=== PATIENT | female | born 1960 | race Caucasian/White ===

== ENCOUNTER 2019-04-22 08:30 | Emergency (ER) | payer BC ==
[2019-04-22 08:45] VITALS: BP 144/82
[2019-04-22] MEDS ORDERED: Hydrocortisone 1% CREAM* 30 GM TUBE TOPICAL ONE (09:17)
--- NOTE | 2019-04-22 09:22 | UC ---
General HPI - HPI Summary HPI Summary: States a few days ago she was out gardening and pulling out several weeds. Took a hot shower shortly afterward. HOwever shortly after started developing itchy spots over arms. Worse on left arm then right. Using OTC hydrocortisone cream. Small spot on her neck. Itchy. No fevers. Otherwise well. Meds: Reviewed - History of Current Complaint Chief Complaint: [facility] Stated Complaint: RASH FROM POISION WEEDS Time Seen by Provider: 04/22/19 09:10 Pain Intensity: 2 - Allergy/Home Medications Allergies/Adverse Reactions: Allergies Allergy/AdvReac Type Severity Reaction Status Date / Time No Known Allergies Allergy Verified 04/22/19 08:45 PMH/Surg Hx/FS Hx/Imm Hx Previously Healthy: Yes - Surgical History Surgical History: None - Social History Alcohol Use: Occasionally Substance Use Type: None Smoking Status (MU): Never Smoked Tobacco - Immunization History Most Recent Tetanus Shot: not up to date Review of Systems All Other Systems Reviewed And Are Negative: Yes Physical Exam Triage Information Reviewed: Yes Appearance: Well-Appearing Vital Signs: Initial Vital Signs Temp 98.6 F 04/22/19 08:38 Pulse 62 04/22/19 08:38 Resp 18 04/22/19 08:38 BP 144/82 04/22/19 08:38 Pulse Ox 97 04/22/19 08:38 Vital Signs Reviewed: Yes Skin Exam: Other - open sores over left arm - erythematous ciruclar areas over left arm, hardened erythemtatous plaque over left antecubital fossa. less areas over right arm. One patch over left neck. Course/Dx - Course Course Of Treatment: This is a 59 yr old with a rash Contact dermatitis consistent with poison casandra dermatitis Plan Recommend steroid ointment 2x/day for 10-14 days or until rash resolves Recommend aquaphor or vaseline over left mid arm over steroid cream Can use cold wraps over areas and/or oatmeal baths Keep fingernails cut shor - Diagnoses Provider Diagnosis: Contact dermatitis Discharge - Sign-Out/Discharge Documenting (check all that apply): Patient Departure All imaging exams completed and their final reports reviewed: No Studies - Discharge Plan Condition: Good Disposition: HOME Prescriptions: Clobetasol 0.05% OINT* 1 applic TOPICAL BID #1 tube Patient Education Materials: Poison Casandra (ED) Referrals: No Primary Care Phys,NOPCP [Primary Care Provider] - Additional Instructions: Recommend steroid ointment 2x/day for 10-14 days or until rash resolves Recommend aquaphor or vaseline over left mid arm over steroid cream Can use cold wraps over areas and/or oatmeal baths Keep fingernails cut short - Billing Disposition and Condition Condition: GOOD Disposition: Home
== END 2019-04-22 09:33 | disposition home or self-care (01) ==
LOC: UCEAST 08:30
DX: L25.9 Unspecified contact dermatitis, unspecified cause (principal)
CPT/HCPCS: 99212; A9270-GY; G0463

== ENCOUNTER 2019-04-24 14:54 | Emergency (ER) | payer BC ==
[2019-04-24 15:09] VITALS: BP 142/73
--- NOTE | 2019-04-24 15:19 | UC ---
Skin Complaint HPI - HPI Summary HPI Summary: Wsa here 2 days ago for poison casandra like reaction. rx'd topical steroid. she reports worsening and spreading. feels like the redness is worse. she reemebers it being hogwart family of plants which she knows also causes similar rxn to poison casandra. - History of Current Complaint Chief Complaint: [facility] Time Seen by Provider: 04/24/19 15:08 Stated Complaint: RASH Hx Obtained From: Patient Onset/Duration: Sudden Onset Pain Intensity: 4 Pain Scale Used: 0-10 Numeric Location: Diffuse Character: Swelling, Pruritus, Pain, Redness, Painful Aggravating Factor(s): Other - heat Alleviating Factor(s): Nothing Associated Signs & Symptoms: Negative: Shivering, Difficulty Breathing, Wheezing - Allergy/Home Medications Allergies/Adverse Reactions: Allergies Allergy/AdvReac Type Severity Reaction Status Date / Time No Known Allergies Allergy Verified 04/24/19 15:09 PMH/Surg Hx/FS Hx/Imm Hx - Additional Past Medical History Additional PMH: no chronic issue Previously Healthy: Yes - Surgical History Surgical History: None - Family History Known Family History: Positive: Non-Contributory - Social History Alcohol Use: Occasionally Substance Use Type: None Smoking Status (MU): Never Smoked Tobacco - Immunization History Most Recent Tetanus Shot: not up to date Review of Systems All Other Systems Reviewed And Are Negative: Yes Constitutional: Negative: Fever, Chills Skin: Positive: Rash Respiratory: Negative: Shortness Of Breath Musculoskeletal: Negative: Edema, Myalgia Physical Exam Triage Information Reviewed: Yes Appearance: Well-Appearing Vital Signs: Initial Vital Signs Temp 99.3 F 04/24/19 15:03 Pulse 56 04/24/19 15:03 Resp 16 04/24/19 15:03 BP 142/73 04/24/19 15:03 Pulse Ox 98 04/24/19 15:03 Vital Signs Reviewed: Yes Respiratory: Positive: No respiratory distress Neurological: Positive: Alert Psychological: Positive: Age Appropriate Behavior Skin: Positive: Rashes - on face, abd both arms. Arms have worst appearance w/ edematous inflammation and blisters. Course/Dx - Course Course Of Treatment: Worsening phytochemical burn. Topical steroid tx has become insufficient. Plan is to give po steroid burst for 5 days., no issues w/ breathing and vitals good. exam did show blistery rash throughout body. - Differential Diagnoses - Skin Complaint Differential Diagnoses: Poison Casandra, Poison [place], Other - Diagnoses Provider Diagnosis: Plant irritant contact dermatitis Discharge - Sign-Out/Discharge Documenting (check all that apply): Patient Departure All imaging exams completed and their final reports reviewed: No Studies - Discharge Plan Condition: Good Disposition: HOME Prescriptions: predniSONE [Prednisone 20 MG TAB] 20 mg PO DAILY 5 Days #5 tablet Patient Education Materials: Poison Casandra (ED) Referrals: No Primary Care Phys,NOPCP [Primary Care Provider] - Additional Instructions: If worsening please follow up with your primary care provider. - Billing Disposition and Condition Condition: GOOD Disposition: Home - Attestation Statements Provider Attestation: Per institutional requirements, I have reviewed the chart, however, I was not consulted specifically or made aware of this patient by the midlevel provider. I did not personally evaluate, interact with , or disposition this patient.
== END 2019-04-24 15:23 | disposition home or self-care (01) ==
LOC: UCEAST 14:54
DX: L24.7 Irritant contact dermatitis due to plants, except food (principal)
CPT/HCPCS: 99212; G0463